=== PATIENT | female | born 1955 | race Caucasian/White ===

== ENCOUNTER → 2016-07-05 | Outpatient (CLI) | payer MEDICARE, OTHER ==
[~2016-07-05] MED LIST: ACETAMINOPHEN PO; AMBIEN; AMLODIPINE BESYL5 MG PO; AMOXICILLIN PO; APRESOLINE PO; ASPIRIN PO; ASPIRIN325 M1 PO; ASPIRIN81 M2 PO; ATARAX PO; AUGMENTIN875 MG PO; BACTRIM DS TABL1 TA1 PO; BAYER CHEWABLE81 MG PO; CELEBREX PO; CIPRO HC OTIC S10 ML OT; CLOPIDOGREL75 MG PO; COREG3.125 MG PO; DARVOCET-N 1001 TAB PO; EFFER-K 20 MEQ20 MEQ PO; EFFIENT10 MG PO; FIORICET 50-321 EACH PO; FLEXERIL10 M1 PO; FLEXERIL10 MG PO; HCTZ PO; HYDRALAZINE HCL25 MG PO; HYDRALAZINE HCL50 MG PO; HYDROCHLOROTHIA25 MG PO; IBUPROFEN800 MG PO; IMDUR; IMDUR PO; K-DUR20 ME1 PO; KLOR-CON PO; LIPITOR PO; LIPITOR20 MG PO; LISINOPRIL PO; LISINOPRIL-HCTZ1 T14 PO; LISINOPRIL20 MG PO; LOPRESSOR; LOPRESSOR PO; LORTAB 5/500 TA1 TA1 PO; LORTAB 7.5-5001 TAB; MEDROL DOSEPAK4 MG PO; METOPROLOL SUCC25 MG PO; METOPROLOL TAR25 MG PO; NITROGLYCERIN SUBLINGUAL; NORVASC; NORVASC PO; PERCOCET 5-3251 TAB PO; PLAVIX PO; PREDNISONE PO; PROTONIX PO; SPIRONOLAC1 TAB 25/2 PO; TYLENOL #3 PO; VALTREX PO; VICODIN 5/500 T1 TAB PO; VICODIN PO; ZITHROMAX; ZITHROMAX PO; ZITHROMAX1 G/PKT PO
--- NOTE | ~2016-07-05 | US136 ---
[facility] A Service of [facility] RADIOLOGY TEXT RESULTS PATIENT: FEMI GEORGE LOCATION: [facility] : 57 UNIT #: [id number] AGE: [address]: Adina Perez MD SEX: F ORDER DR: [id number] [facility] [address] [place], [place] [address] [id number] O MR#: [id number] Acc #: [id number] NAME: FEMI GEORGE : 1955 SEX: F STUDY DATE/TIME: 07/05/2016 12:49 UNIT: [facility] ROOM: STUDY DESCRIPTION: US U/L Ext Art Study Ltd Bil Attending Physician: Adina Perez M.D. Referring Physician: Adina Perez M.D. Ordering Physician: Adina Perez M.D. Primary Care Physician: [facility]. MEDICAL IMAGING REPORT This report is preliminary unless electronic signature is present EXAM Ankle-brachial indices, 07/05/2016 HISTORY Claudication FINDINGS The right brachial pressure is 146 and left brachial pressure is 133. The right dorsalis pedis pressure is 168, posterior tibial 167, and toe 106 for an ankle-brachial index of 1.15. The left dorsalis pedis pressure is 162, posterior tibial 162, and toe 106 for an ankle-brachial index of 1.11. Pulse volume recording tracings demonstrate a good amplitude signal at the ankle level on both sides. Doppler waveform analysis indicates a triphasic signal in the posterior tibial and dorsalis pedis arteries bilaterally. IMPRESSION Normal perfusion of both legs. Ankle-brachial index is 1.15 on the right and 1.11 on the left. Dictated by... Jarrett Jeter M.D. THIS IS AN ELECTRONICALLY VERIFIED REPORT Jarrett Jeter M.D. at 07/06/2016 7:28 AM PEACE/john [facility] A Service [facility] RADIOLOGY TEXT RESULTS PATIENT: FEMI GEORGE LOCATION: [facility] : 57 UNIT #: [id number] AGE: [address]: Adina Perez MD SEX: F ORDER DR: TD: 07/05/2016 17:06 JOB #: [id number] MEDICAL IMAGING REPORT Page 1 of 1 COPY
== END | disposition home or self-care (01) ==
LOC: CNIV 12:32
DX: I73.9 Peripheral vascular disease, unspecified (principal)
CPT/HCPCS: 93922